=== PATIENT | female | born 1980 | race Caucasian/White ===

== ENCOUNTER 2020-06-03 16:00 | Outpatient (CLI) | payer BC ==
--- NOTE | 2020-06-03 16:36 | RAD ---
XR Ankle Rt 3 View STANDARD History: Fall. Injury Comparison: None. Findings: Distal fibular tip avulsion fracture with minimal 4 mm distraction. No significant joint ef fusion. No lateral talar shift. Impression: Small distal fibular tip avulsion fracture.
== END 2020-06-03 16:01 | disposition home or self-care (01) ==
LOC: SCSRAD 16:00
PROVIDERS: ATTEND Nurse Practitioner Family
DX: M25.571 Pain in right ankle and joints of right foot (principal); S93.491A Sprain of other ligament of right ankle, initial encounter; S82.831A Other fracture of upper and lower end of right fibula, initial encounter for closed fracture; W19.XXXA Unspecified fall, initial encounter